=== PATIENT | female | born 1950 | race Caucasian/White ===

== ENCOUNTER → 2016-11-09 | Emergency (ER) | payer BC, OTHER ==
[~2016-11-09] MED LIST: MECLIZINE HCL 25 MG TABLET (FP) ONE; MECLIZINE HCL 25 MG TABLET (FP) PO ONE
[2016-11-09 11:02] VITALS: BP 165/87; PULSE 68; TEMP 98; BMI 27.3
--- NOTE | 2016-11-09 12:04 | PDOC ---
History of Present Illness - General Chief Complaint: Lightheaded Stated Complaint: LIGHTHEADED, NEAR SYNCOPE Time Seen by Provider: 11/09/16 11:43 - History of Present Illness Initial Comments: 11/09/16 11:45 Ms. Diaz is a 66 year old female with a significant past medical history of vertigo and reported benign pituitary mass who presents to the emergency department with 3 day history of shaking, dizziness, weakness, and headache. She reports that she had some nausea that was relieved by vomiting on Wednesday, and that she has had the weakness and dizziness more or less constantly since. She has a history of headaches for years but presents concerned about the recent weakness. Is currently between neurologists. The patient denies chest pain and shortness of breath. Denies fever, chills, diarrhea and constipation. Denies dysuria, frequency, urgency and hematuria. Allergies: almond oil, apples, avocado, peaches Past surgical history: denies Social history: denies alcohol / tobacco PMD - Dr. Garcia 11/09/16 12:04 Past History - Past Medical History Allergies/Adverse Reactions: Allergies Allergy/AdvReac Type Severity Reaction Status Date / Time almond oil Allergy Verified 11/09/16 11:02 apple Allergy Verified 11/09/16 11:02 avocado Allergy Verified 11/09/16 11:02 peach Allergy Verified 11/09/16 11:02 Home Medications: Ambulatory Orders Meclizine HCl [Antivert -] 25 mg PO TID PRN #30 tablet 12/21/15 Amlodipine Besylate [Norvasc -] 5 mg PO DAILY 11/09/16 Pantoprazole Sodium [Protonix] 40 mg PO DAILY 11/09/16 Anemia: No Asthma: Yes Cancer: No Cardiac Disorders: Yes (palpitations) CVA: No COPD: No CHF: No Dementia: No Diabetes: No GI Disorders: Yes (GASTRITIS, GERD) Disorders: No HTN: No Hypercholesterolemia: No Liver Disease: No Seizures: No Thyroid Disease: No Other medical history: BENIGN BRAIN TUMOR - Surgical History Abdominal Surgery: Yes (tummy tuck) Appendectomy: No Cardiac Surgery: No Cholecystectomy: No Lung Surgery: No Neurologic Surgery: No Orthopedic Surgery: No - Immunization History Immunization Up to Date: Yes - Psycho/Social/Smoking Cessation Hx Anxiety: No Suicidal Ideation: No Smoking History: Never smoked Have you smoked in the past 12 months: No Hx Alcohol Use: No Drug/Substance Use Hx: No Substance Use Type: None Review of Systems - Review of Systems Comments:: 11/09/16 11:45 GENERAL/CONSTITUTIONAL: No fever or chills. No weakness. HEAD, EYES, EARS, NOSE AND THROAT: No change in vision. No ear pain or discharge. No sore throat. CARDIOVASCULAR: No chest pain or shortness of breath RESPIRATORY: No cough, wheezing, or hemoptysis. GASTROINTESTINAL: +Some nausea on wednesday with one episode of vomiting, no diarrhea or constipation. GENITOURINARY: No dysuria, frequency, or change in urination. MUSCULOSKELETAL: No joint or muscle swelling or pain. No neck or back pain. SKIN: No rash NEUROLOGIC: +Endorses Headache, vertigo, and weakness; denies loss of consciousness ENDOCRINE: No increased thirst. No abnormal weight change HEMATOLOGIC/LYMPHATIC: No anemia, easy bleeding, or history of blood clots. ALLERGIC/IMMUNOLOGIC: No hives or skin allergy. 11/09/16 12:07 11/09/16 13:39 *Physical Exam - Vital Signs Last Vital Signs Temp Pulse Resp BP Pulse Ox 98.0 F 68 18 165/87 97 11/09/16 10:58 11/09/16 10:58 11/09/16 10:58 11/09/16 10:58 11/09/16 10:58 11/09/16 12:29 - Physical Exam Comments: 11/09/16 11:46 GENERAL: Awake, alert, and fully oriented, in no acute distress HEAD: No signs of trauma, normocephalic, atraumatic EYES: PERRLA, EOMI, sclera anicteric, conjunctiva clear ENT: Auricles normal inspection, hearing grossly normal, nares patent, oropharynx clear without exudates. Moist mucosa NECK: Normal ROM, supple, no lymphadenopathy, JVD, or masses LUNGS: No distress, speaks full sentences, clear to auscultation bilaterally HEART: Regular rate and rhythm, normal S1 and S2, no murmurs, rubs or gallops, peripheral pulses normal and equal bilaterally. ABDOMEN: Soft, nontender, normoactive bowel sounds. No guarding, no rebound. No masses EXTREMITIES: Normal inspection, Normal range of motion, no edema. No clubbing or cyanosis. NEUROLOGICAL: +Nystagmus noted on exam; Cranial nerves II through XII grossly intact. Normal speech, normal gait, no focal sensorimotor deficits SKIN: Warm, Dry, normal turgor, no rashes or lesions noted. 11/09/16 12:08 11/09/16 12:29 11/09/16 13:40 11/09/16 16:00 ED Treatment Course - LABORATORY CBC & Chemistry Diagram: 11/09/16 13:36 11/09/16 13:36 Medical Decision Making - Medical Decision Making 11/09/16 13:41 Patient presents with 4 day history of generalized weakness with nausea. History of vertigo, has not taken her medication recently. Exam positive for eye nystagmus. No focal deficits noted. Suspect vertigo exacerbation, took basic labs for CBC/BMP/UTI to r/o other causative factors. UTI, labs all normal. Diagnosing cause as vertigo. Will refer to neurologist and discharge. 11/09/16 15:37 11/09/16 16:00 *DC/Admit/Observation/Transfer Diagnosis at time of Disposition: Vertigo - Discharge Dispostion Disposition: HOME - Referrals Referrals: Weston Lopez MD [Staff Physician] - - Patient Instructions Printed Discharge Instructions: Vertigo Additional Instructions: Please take home meclizine as proscribed. If problems finding medications on returning home please call and we will write prescription for you. Follow-up with neurologist this week. - Post Discharge Activity Work/School Note: Back to Work - Attestations Physician Attestion: 11/09/16 13:45 I, Dr. Patel Sheridan, attest that this document has been prepared under my direction and personally reviewed by me in its entirety. I further attest, that it accurately reflects all work, treatment, procedures and medical decision -making performed by me.
[2016-11-09 13:36] LABS: URINE APPEARANCE CLEAR; URINE BILIRUBIN NEGATIVE (NEGATIVE); URINE BLOOD NEGATIVE (NEGATIVE); URINE COLOR COLORLESS; URINE GLUCOSE (UA) NEGATIVE (NEGATIVE); URINE KETONE NEGATIVE (NEGATIVE); URINE LEUK ESTERASE NEGATIVE (NEGATIVE); URINE NITRITE NEGATIVE (NEGATIVE); URINE PROTEIN NEGATIVE (NEGATIVE); URINE UROBILINOGEN NEGATIVE mg/dL (0.2-1.0)
[2016-11-09 13:53] LABS: BASOPHIL 0.5 % (0-2.0); EOSINOPHIL 2.2 % (0-4.5); MCH 29.7 pg (25.7-33.7); MCHC 33.5 g/dl (32.0-36.0); MEAN CELL VOLUME 88.8 fl (80-96); MEAN PLT VOLUME 8.1 fl (7.5-11.1); NEUTROPHILS 69.5 % (42.8-82.8); PLATELET COUNT 248 K/MM3 (134-434); RDW 13.3 % (11.6-15.6); WHITE BLOOD COUNT 8.2 K/mm3 (4.0-10.0)
[2016-11-09 14:17] LABS: ANION GAP 6 (8-16); CALCIUM 9.6 mg/dL (8.5-10.1); CO2 30 mmol/L (21-32); CREATININE 0.6 mg/dL (0.55-1.02); GLUCOSE,RANDOM 82 mg/dL (74-106)
[2016-11-09 14:20] LABS: TROPONIN I < 0.02 ng/ml (0.00-0.05)
--- NOTE | 2016-11-09 14:20 | PDOC ---
Attending Attestation - Resident Resident Name: Patel Sheridan - ED Attending Attestation I have performed the following: I have examined & evaluated the patient, The case was reviewed & discussed with the resident, I agree w/resident's findings & plan, Exceptions are as noted - HPI HPI: 11/09/16 14:19 Agree with the resident's HPI as documented in the electronic medical record. - Physicial Exam PE: 11/09/16 14:19 Agree with the resident's physical examination as documented in the electronic medical record. - Medical Decision Making 11/09/16 14:19 66-year-old female with history of pituitary adenoma and chronic headaches presents the emergency Department with complaints of vertiginous symptoms over the past 3 days; she did not take her meclizine. Differential diagnosis includes but is not limited to: Vertigo, dehydration, electrolyte abnormality, atypical presentation of ACS, toxic/metabolic derangement. Plan: 1. Labs 2. EKG 3. Meclizine 4. Observe and reevaluate
--- NOTE | 2016-11-09 16:58 | EKG ---
Test Reason : Blood Pressure : / mmHG Vent. Rate : 055 BPM Atrial Rate : 055 BPM P-R Int : 132 ms QRS Dur : 088 ms QT Int : 420 ms P-R-T Axes : 057 028 010 degrees QTc Int : 401 ms SINUS BRADYCARDIA CANNOT RULE OUT ANTERIOR INFARCT , AGE UNDETERMINED ABNORMAL ECG WHEN COMPARED WITH ECG OF 19-DEC-2015 10:01, NO SIGNIFICANT CHANGE WAS FOUND Confirmed by DANA CESPEDES MD ([id number]) on 11/09/2016 4:57:32 PM Referred By: Confirmed By:DANA CESPEDES MD
== END | disposition home or self-care (01) ==
LOC: JER 10:55
DX: R42 Dizziness and giddiness (principal)
CPT/HCPCS: 36415; 80048; 81003; 82550; 84484; 85025; 93005; 93010; 99283-25

== ENCOUNTER 2017-03-29 10:53 | Emergency (ER) | payer BC, OTHER ==
[2017-03-29 11:21] VITALS: TEMP 98; BMI 27.3
--- NOTE | 2017-03-29 11:26 | PDOC ---
History of Present Illness <Darnell Edmondson - Last Filed: 03/29/17 15:05> - General History Source: Patient Exam Limitations: No Limitations - History of Present Illness Initial Comments: 03/29/17 12:02 The patient is a 66 year old female, with a significant past medical history of a brain tumor(Pituitary gland macroadenoma), chronic headaches, and gastritis, who presents to the emergency department with dizziness, headache, and nausea since earlier today. The patient reports while at work she began to feel dizzy( as if the room were spinning), and had to grab onto the eller because she thought she was going to pass out. Patient reports the school nurse monitored her blood pressure, and told her it was elevated and recommended ED evaluation. She reports associated headache, nausea, chills, and chest pressure, but denies any LOC, head trauma, changes in vision, or vomiting. Patient reports similar episodes in the past, for which she has followed up with a Neurologist for, Dr. Stahl, who ordered multiple MRIs. Patient reports she was diagnosed with a pituitary adenoma approximately 1 year ago. Since then she reports multiple episodes of vertigo. She denies any shortness of breath, diaphoresis, or palpitations. She denies any abdominal pain, diarrhea, constipation, or changes in urination patterns. She denies any recent travel or sick contacts. Allergies: NKDA Past Surgical History: Trinh walsh Social History: Non smoker. No ETOH or recreational drug use. PCP: Dr. Garcia Neurologist: Dr. Stahl <Digna Morin - Last Filed: 03/29/17 18:40> - General Chief Complaint: Lightheaded Stated Complaint: LIGHTHEADED Time Seen by Provider: 03/29/17 11:25 Past History - Past Medical History Anemia: No Asthma: Yes Cancer: No Cardiac Disorders: Yes (palpitations) CVA: No COPD: No CHF: No Dementia: No Diabetes: No GI Disorders: Yes (GASTRITIS, GERD) Disorders: No HTN: No Hypercholesterolemia: No Liver Disease: No Seizures: No Thyroid Disease: No - Surgical History Abdominal Surgery: Yes (fanmy jillian) Appendectomy: No Cardiac Surgery: No Cholecystectomy: No Lung Surgery: No Neurologic Surgery: No Orthopedic Surgery: No - Immunization History Immunization Up to Date: Yes - Suicide/Smoking/Psychosocial Hx Smoking History: Never smoked Have you smoked in the past 12 months: No Hx Alcohol Use: No Drug/Substance Use Hx: No Substance Use Type: None <Darnell Edmondson - Last Filed: 03/29/17 15:05> <Digna Morin - Last Filed: 03/29/17 18:40> - Past Medical History Allergies/Adverse Reactions: Allergies Allergy/AdvReac Type Severity Reaction Status Date / Time almond oil Allergy Verified 03/29/17 11:18 apple Allergy Verified 03/29/17 11:18 avocado Allergy Verified 03/29/17 11:18 peach Allergy Verified 03/29/17 11:18 Home Medications: Ambulatory Orders Amlodipine Besylate [Norvasc -] 5 mg PO DAILY 11/09/16 Meclizine HCl [Antivert -] 25 mg PO TID PRN #30 tablet 11/09/16 Meclizine HCl [Antivert -] 25 mg PO TID #21 tablet 03/29/17 Review of Systems - Review of Systems Able to Perform ROS?: Yes Comments:: 03/29/17 12:02 GENERAL/CONSTITUTIONAL: Yes chills, weakness. No fever. HEAD, EYES, EARS, NOSE AND THROAT: No change in vision. No ear pain or discharge. No sore throat. CARDIOVASCULAR: Yes chest pressure. No shortness of breath. RESPIRATORY: No cough, wheezing, or hemoptysis. GASTROINTESTINAL: Yes nausea. No vomiting, diarrhea or constipation. GENITOURINARY: No dysuria, frequency, or change in urination. MUSCULOSKELETAL: No joint or muscle swelling or pain. No neck or back pain. SKIN: No rash NEUROLOGIC: Yes headache, vertigo, lightheadedness. No loss of consciousness, or change in strength/sensation. ENDOCRINE: No increased thirst. No abnormal weight change. HEMATOLOGIC/LYMPHATIC: No anemia, easy bleeding, or history of blood clots. ALLERGIC/IMMUNOLOGIC: No hives or skin allergy. <Digna Morin - Last Filed: 03/29/17 18:40> *Physical Exam - Vital Signs Last Vital Signs Temp Pulse Resp BP Pulse Ox 98 F 63 19 162/75 97 03/29/17 11:19 03/29/17 11:19 03/29/17 11:19 03/29/17 11:19 03/29/17 11:19 <Darnell Edmondson - Last Filed: 03/29/17 15:05> - Vital Signs Last Vital Signs Temp Pulse Resp BP Pulse Ox 98 F 63 19 162/75 97 03/29/17 11:19 03/29/17 11:19 03/29/17 11:19 03/29/17 11:19 03/29/17 11:19 - Physical Exam Comments: 03/29/17 12:02 GENERAL: Awake, alert, and fully oriented, in no acute distress HEAD: No signs of trauma EYES: PERRLA, EOMI, sclera anicteric, conjunctiva clear ENT: Auricles normal inspection, hearing grossly normal, nares patent, oropharynx clear without exudates. Moist mucosa NECK: Normal ROM, supple, no lymphadenopathy, JVD, or masses LUNGS: Breath sounds equal, clear to auscultation bilaterally. No wheezes, and no crackles HEART: Regular rate and rhythm, normal S1 and S2, no murmurs, rubs or gallops ABDOMEN: Soft, nontender, normoactive bowel sounds. No guarding, no rebound. No masses EXTREMITIES: Normal range of motion, no edema. No clubbing or cyanosis. No cords, erythema, or tenderness NEUROLOGICAL: Cranial nerves II through XII grossly intact. Normal speech SKIN: Warm, Dry, normal turgor, no rashes or lesions noted. <Digna Morin - Last Filed: 03/29/17 18:40> Heart Score/ECG Review - ECG Intrepretation Comment:: 03/29/17 18:40 Vent Rate:55 bpm IMPRESSION: Sinus bradycardia. <Digna Morin - Last Filed: 03/29/17 18:40> ED Treatment Course - LABORATORY CBC & Chemistry Diagram: 03/29/17 12:20 03/29/17 12:20 <Darnell Edmondson - Last Filed: 03/29/17 15:05> - LABORATORY CBC & Chemistry Diagram: 03/29/17 12:20 03/29/17 12:20 - RADIOLOGY Radiograph Interpretation: 03/29/17 13:21 EXAM: CXR INTERPRETED BY: Dr. Tesfaye REVIEWED BY: Dr. Edmondson IMPRESSION: No definite interval change is seen in comparison to a prior radiographic study of 12/19/2015. <Digna Morin - Last Filed: 03/29/17 18:40> *DC/Admit/Observation/Transfer - Discharge Dispostion Admit: No - Attestations Physician Attestion: 03/29/17 11:25 I, Dr. Darnell Edmondson, attest that this document has been prepared under my direction and personally reviewed by me in its entirety. I further attest, that it accurately reflects all work, treatment, procedures and medical decision -making performed by me. <Darnell Edmondson - Last Filed: 03/29/17 15:05> - Attestations Scribe Attestion: 03/29/17 12:03 Documentation prepared by Digna Morin, acting as medical field representative for Darnell Edmondson DO. <Digna Morin - Last Filed: 03/29/17 18:40> Diagnosis at time of Disposition: Vertigo, Pituitary macroadenoma - Discharge Dispostion Disposition: HOME Condition at time of disposition: Improved - Prescriptions Prescriptions: Meclizine HCl [Antivert -] 25 mg PO TID #21 tablet - Referrals Referrals: Laina Sanders MD [Primary Care Provider] - - Patient Instructions Printed Discharge Instructions: DI for Vertigo Additional Instructions: Mrs Diaz - Don't drive while taking the meclazine. Follow up with your regular doctors including Dr. Stahl (Neurology). Return to us if any problems or symptoms get worse. Best- Dr. Darnell Edmondson - Post Discharge Activity Forms/Work/School Notes: Back to Work
[2017-03-29] MEDS ORDERED: SODIUM CHLORIDE 1,000 ML IV STA (12:01)
[2017-03-29] MEDS ORDERED: MECLIZINE HCL 25 MG TABLET (FP) PO ONE (12:12)
[2017-03-29] MEDS ORDERED: MECLIZINE HCL 25 MG TABLET (FP) ONE (12:26)
[2017-03-29 12:31] LABS: BASOPHIL 0.4 % (0-2.0); MCH 29.7 pg (25.7-33.7); MCHC 33.2 g/dl (32.0-36.0); MEAN CELL VOLUME 89.5 fl (80-96); NEUTROPHILS 72.5 % (42.8-82.8); PLATELET COUNT 263 K/MM3 (134-434); RDW 12.7 % (11.6-15.6); WHITE BLOOD COUNT 8.7 K/mm3 (4.0-10.0)
[2017-03-29 12:56] LABS: ALBUMIN 3.7 g/dl (3.4-5.0); ANION GAP 4 (8-16); BILIRUBIN,TOTAL 0.3 mg/dL (0.2-1.0); CALCIUM 9.1 mg/dL (8.5-10.1); CO2 30 mmol/L (21-32); CREATININE 0.8 mg/dL (0.55-1.02); GLUCOSE,RANDOM 97 mg/dL (74-106); SGOT/AST 14 U/L (15-37); SGPT/ALT 24 U/L (12-78); TOT PROT 7.7 g/dl (6.4-8.2)
[2017-03-29 13:00] LABS: ALK PHOS 85 U/L (45-117); CPK 77 IU/L (26-192); TROPONIN I < 0.02 ng/ml (0.00-0.05)
[2017-03-29 13:08] LABS: INR 1.05 (0.82-1.09); PROTHROMBIN TIME (PATIENT) 11.9 SEC (9.98-11.88)
--- NOTE | 2017-03-29 13:15 | EKG ---
Test Reason : Blood Pressure : / mmHG Vent. Rate : 055 BPM Atrial Rate : 055 BPM P-R Int : 136 ms QRS Dur : 086 ms QT Int : 396 ms P-R-T Axes : 049 031 019 degrees QTc Int : 378 ms SINUS BRADYCARDIA OTHERWISE NORMAL ECG WHEN COMPARED WITH ECG OF 09-NOV-2016 13:26, NO SIGNIFICANT CHANGE WAS FOUND Confirmed by DANA CESPEDES MD ([id number]) on 03/29/2017 1:15:30 PM Referred By: Confirmed By:DANA CESPEDES MD
[2017-03-29 15:12] VITALS: BP 140/80; PULSE 88
== END 2017-03-29 15:12 | disposition home or self-care (01) ==
LOC: JER 10:53
PROC: 3E0337Z Introduction of Electrolytic and Water Balance Substance into Peripheral Vein, Percutaneous Approach (ICD-10-PCS; principal; 2017-03-29)
DX: R42 Dizziness and giddiness (principal); D35.2 Benign neoplasm of pituitary gland
CPT/HCPCS: 36415; 71010-TC; 80053; 82550; 83880; 84484; 85025; 85610; 93005; 93010; 99283-25

== ENCOUNTER 2018-08-24 08:02 | Emergency (ER) | payer OTHER, BC ==
[2018-08-24 08:34] VITALS: BP 133/58; PULSE 74; TEMP 98.6; BMI 60.1
[2018-08-24] MEDS ORDERED: ONDANSETRON 4 MG/2 ML VIAL IVPUSH ONE (09:01)
[2018-08-24] MEDS ORDERED: ACETAMINOPHEN 1000 MG/100 ML VIAL (NON FORMULARY) IVPB ONE (09:01)
[2018-08-24] MEDS ORDERED: MECLIZINE HCL 25 MG TABLET (FP) PO ONE (09:02)
[2018-08-24] MEDS ORDERED: SODIUM CHLORIDE 1,000 ML IV STA (09:02)
[2018-08-24] MEDS ORDERED: ONDANSETRON 4 MG/2 ML VIAL ONE (09:26)
[2018-08-24] MEDS ORDERED: ACETAMINOPHEN INJECTION 100 ML IVPB ONE (09:26)
[2018-08-24] MEDS ORDERED: MECLIZINE HCL 25 MG TABLET (FP) ONE (09:26)
[2018-08-24 09:57] LABS: BASO % 0.7 % (0-2.0); EOS % 4.3 % (0-4.5); HEMOGLOBIN 14.1 GM/dL (10.7-15.3); LYMPH % 24.1 % (8-40); MCH 29.9 pg (25.7-33.7); MCHC 33.5 g/dl (32.0-36.0); MEAN CELL VOLUME 89.4 fl (80-96); MEAN PLT VOLUME 8.9 fl (7.5-11.1); MONO % 13.4 % (3.8-10.2); NEUT % 57.5 % (42.8-82.8); PLATELET COUNT 266 K/MM3 (134-434); RBC 4.69 M/mm3 (3.60-5.2); RDW 13.5 % (11.6-15.6); WHITE BLOOD COUNT 4.8 K/mm3 (4.0-10.0)
--- NOTE | 2018-08-24 10:01 | PDOC ---
History of Present Illness - General History Source: Patient Exam Limitations: No Limitations - History of Present Illness Initial Comments: 08/24/18 08:58 68-year-old female with history of vertigo along with a stable pituitary tumor presents to ED with complaints of parietal and temporal throbbing pressure radiating to her bilateral ears along with dizziness since yesterday. Patient states took meclizine last night with no improvement and took Motrin for the headache with no improvement. Patient denies fever, chills, visual changes, neck pain, chest pain, shortness of breath, abdominal pain or urinary complaints. Patient states history of headaches which is similar to presentation but now complaining of nausea which she states is infrequent Timing/Duration: reports: increasing Severity: Yes: moderate Associated Symptoms: reports: nausea/vomiting, other <Renu Almodovar - Last Filed: 08/24/18 11:26> <Soraya Gramajo - Last Filed: 08/24/18 11:31> - General Chief Complaint: Headache Stated Complaint: PAIN Time Seen by Provider: 08/24/18 08:35 Past History - Travel Traveled outside of the country in the last 30 days: No Close contact w/someone who was outside of country & ill: No - Past Medical History Anemia: No Asthma: Yes Cancer: No Cardiac Disorders: Yes (palpitations) CVA: No COPD: No CHF: No Dementia: No Diabetes: No GI Disorders: Yes (GASTRITIS, GERD) Disorders: No HTN: No Hypercholesterolemia: No Liver Disease: No Seizures: No Thyroid Disease: No Other medical history: BRAIN TUMOR- NO INTERVENTIONS - Surgical History Abdominal Surgery: Yes (tummy tuck) Appendectomy: No Cardiac Surgery: No Cholecystectomy: No Lung Surgery: No Neurologic Surgery: No Orthopedic Surgery: No - Immunization History Immunization Up to Date: Yes - Suicide/Smoking/Psychosocial Hx Smoking History: Never smoked Have you smoked in the past 12 months: No Hx Alcohol Use: No Drug/Substance Use Hx: No Substance Use Type: None Patient Lives Alone: No Lives with/in: spouse/SO <Renu Almodovar - Last Filed: 08/24/18 11:26> <Soraya Gramajo - Last Filed: 08/24/18 11:31> - Past Medical History Allergies/Adverse Reactions: Allergies Allergy/AdvReac Type Severity Reaction Status Date / Time almond oil Allergy Verified 08/24/18 08:14 apple Allergy Verified 08/24/18 08:14 avocado Allergy Verified 08/24/18 08:14 peach Allergy Verified 08/24/18 08:14 Home Medications: Ambulatory Orders Amlodipine Besylate [Norvasc -] 5 mg PO DAILY 11/09/16 Meclizine HCl [Antivert -] 25 mg PO TID PRN #30 tablet 11/09/16 Ibuprofen [Motrin -] 600 mg PO TID PRN #21 tablet 08/24/18 Review of Systems - Review of Systems Able to Perform ROS?: Yes Constitutional: No: Symptoms Reported HEENTM: Yes: Symptoms Reported, Ear Pain Respiratory: No: Symptoms reported Cardiac (ROS): Yes: Lightheadedness ABD/GI: Yes: Nausea : No: Symptoms Reported Musculoskeletal: No: Symptoms Reported Integumentary: No: Symptoms Reported Neurological: Yes: Headache Endocrine: No: Symptoms Reported Hematologic/Lymphatic: No: Symptoms Reported <Renu Almodovar - Last Filed: 08/24/18 11:26> *Physical Exam - Vital Signs Last Vital Signs Temp Pulse Resp BP Pulse Ox 98.6 F 74 18 133/58 L 100 08/24/18 08:14 08/24/18 08:14 08/24/18 08:14 08/24/18 08:14 08/24/18 08:14 - Physical Exam General Appearance: Yes: Nourished, Appropriately Dressed. No: Apparent Distress HEENT: positive: EOMI, SHREYAS, TMs Normal, Pharynx Normal. negative: Pale Conjunctivae Neck: positive: Supple. negative: Decreased range of motion, Tender lateral, Tender midline Respiratory/Chest: positive: Lungs Clear, Normal Breath Sounds. negative: Respiratory Distress, Accessory Muscle Use Cardiovascular: positive: Regular Rhythm, Regular Rate. negative: Murmur Gastrointestinal/Abdominal: positive: Soft. negative: Tenderness Extremity: positive: Normal Capillary Refill Integumentary: positive: Normal Color, Warm, Moist Neurologic: positive: Motor Strength 5/5 (ambulatory) <Renu Almodovar - Last Filed: 08/24/18 11:26> - Vital Signs Last Vital Signs Temp Pulse Resp BP Pulse Ox 98.6 F 74 18 133/58 L 100 08/24/18 08:14 08/24/18 08:14 08/24/18 08:14 08/24/18 08:14 08/24/18 08:14 <GramajoSoraya Anisa - Last Filed: 08/24/18 11:31> ED Treatment Course - LABORATORY CBC & Chemistry Diagram: 08/24/18 09:30 08/24/18 09:30 - Medications Given in the ED: ED Medications Discontinued Medications Generic Name Dose Route Start Last Admin Trade Name Rolando PRN Reason Stop Dose Admin Acetaminophen 1,000 mg 08/24/18 09:01 08/24/18 09:40 Ofirmev Injection - IVPB 08/24/18 09:02 1,000 mg ONCE ONE Administration Meclizine HCl 25 mg 08/24/18 09:02 08/24/18 09:40 Antivert - PO 08/24/18 09:03 25 mg ONCE ONE Administration Ondansetron HCl 4 mg 08/24/18 09:01 08/24/18 09:40 Zofran Injection IVPUSH 08/24/18 09:02 4 mg ONCE ONE Administration <Renu Almodovar - Last Filed: 08/24/18 11:26> - LABORATORY CBC & Chemistry Diagram: 08/24/18 09:30 08/24/18 09:30 - ADDITIONAL ORDERS Additional order review: Laboratory Results 08/24/18 08/24/18 10:16 09:30 Sodium 139 Potassium 4.5 Chloride 105 Carbon Dioxide 30 Anion Gap 5 L BUN 15 Creatinine 0.7 Creat Clearance w eGFR 83.47 Random Glucose 92 Calcium 8.9 Total Bilirubin 0.3 AST 28 ALT 24 Alkaline Phosphatase 80 Total Protein 7.2 Albumin 3.4 Urine Color Yellow Urine Appearance Clear Urine pH 6.0 Ur Specific [place] 1.007 L Urine Protein Negative Urine Glucose (UA) Negative Urine Ketones Negative Urine Blood Negative Urine Nitrite Negative Urine Bilirubin Negative Urine Urobilinogen 0.2 Ur Leukocyte Esterase Trace Urine WBC (Auto) 1 Urine RBC (Auto) 0 Urine Casts (Auto) 0 U Epithel Cells (Auto) 0.6 Urine Bacteria (Auto) 8.1 08/24/18 09:30 RBC 4.69 MCV 89.4 MCHC 33.5 RDW 13.5 MPV 8.9 D Neutrophils % 57.5 D Lymphocytes % 24.1 D Monocytes % 13.4 H D Eosinophils % 4.3 Basophils % 0.7 - Medications Given in the ED: ED Medications Discontinued Medications Generic Name Dose Route Start Last Admin Trade Name Rolando PRN Reason Stop Dose Admin Acetaminophen 1,000 mg 08/24/18 09:01 08/24/18 09:40 Ofirmev Injection - IVPB 08/24/18 09:02 1,000 mg ONCE ONE Administration Sodium Chloride 1,000 mls @ 1,000 mls/hr 08/24/18 09:02 08/24/18 09:40 Normal Saline - IV 08/24/18 10:01 1,000 mls/hr ASDIR STA Administration Meclizine HCl 25 mg 08/24/18 09:02 08/24/18 09:40 Antivert - PO 08/24/18 09:03 25 mg ONCE ONE Administration Ondansetron HCl 4 mg 08/24/18 09:01 08/24/18 09:40 Zofran Injection IVPUSH 08/24/18 09:02 4 mg ONCE ONE Administration <Soraya Gramajo - Last Filed: 08/24/18 11:31> Medical Decision Making - Medical Decision Making 08/24/18 09:00 Chief complaint, headache along with nausea. Pain since yesterday. Patient with history of pituitary tumor unchanged from previous MRI noted March 2018 Meclizine and Motrin with no improvement Exam: Vital signs stable no neuro focal deficits/findings Plan: Labs, fluids, Zofran, Toradol along with urine collection 08/24/18 10:58 Laboratory Tests 08/24/18 08/24/18 08/24/18 09:30 09:30 10:16 WBC 4.8 Hgb 14.1 Hct 42.0 Neutrophils % 57.5 D Sodium 139 Potassium 4.5 Chloride 105 Carbon Dioxide 30 Anion Gap 5 L BUN 15 Creatinine 0.7 AST 28 ALT 24 Albumin 3.4 Ur Specific [place] 1.007 L Urine Nitrite Negative Urine Bilirubin Negative Urine Urobilinogen 0.2 Ur Leukocyte Esterase Trace Urine WBC (Auto) 1 Urine RBC (Auto) 0 Patient states feeling much better. 08/24/18 11:26 Patient requesting to eat and to be discharged. Patient will be sent home with Motrin 600 mg and states has enough meclizine at home. <Renu Almodovar - Last Filed: 08/24/18 11:26> - Medical Decision Making The patient was seen and evaluated in conjunction with midlevel provider under my direct supervision, ancillary studies were reviewed. I agree with the plan as outlined [employer] Sco[employer]. HPI, workup/dispo as outlined. VS reviewed, wnl. labs unremarkable, given supportive care/analgesia, reassessment, anticipate discharge 08/24/18 11:31 <Soraya Gramajo - Last Filed: 08/24/18 11:31> *DC/Admit/Observation/Transfer <Renu Almodovar - Last Filed: 08/24/18 11:26> <Soraya Gramajo - Last Filed: 08/24/18 11:31> Diagnosis at time of Disposition: Vertigo, Headache - Discharge Dispostion Disposition: HOME Condition at time of disposition: Improved - Prescriptions Prescriptions: Ibuprofen [Motrin -] 600 mg PO TID PRN #21 tablet PRN Reason: Pain - Referrals Referrals: Laina Sanders MD [Primary Care Provider] - - Patient Instructions Printed Discharge Instructions: DI for Vertigo, DI for Headache Additional Instructions: Take motrin as needed for headache that please use your meclizine as needed for vertigo. If your symptoms worsen or return please follow-up with your neurologist or return to the ER. - Post Discharge Activity
[2018-08-24 10:30] LABS: EPI CELLS 0.6 /HPF (0-5/HPF); URINE APPEARANCE CLEAR; URINE BACTERIA 8.1 /hpf (NEGATIVE); URINE BILIRUBIN NEGATIVE (NEGATIVE); URINE CASTS 0 /lpf (0-8); URINE COLOR YELLOW; URINE GLUCOSE (UA) NEGATIVE (NEGATIVE); URINE KETONE NEGATIVE (NEGATIVE); URINE LEUK ESTERASE TRACE (NEGATIVE); URINE NITRITE NEGATIVE (NEGATIVE); URINE PROTEIN NEGATIVE (NEGATIVE); URINE RBC 0 /hpf (0-4); URINE UROBILINOGEN 0.2 mg/dL (0.2-1.0); URINE WBC 1 /hpf (0-5)
[2018-08-24 10:31] LABS: ALBUMIN 3.4 g/dl (3.4-5.0); ALK PHOS 80 U/L (45-117); ANION GAP 5 MMOL/L (8-16); BILIRUBIN,TOTAL 0.3 mg/dL (0.2-1); BLOOD UREA NITROGEN 15 mg/dL (7-18); CALCIUM 8.9 mg/dL (8.5-10.1); CHLORIDE 105 mmol/L (98-107); CO2 30 mmol/L (21-32); CREATININE 0.7 mg/dL (0.55-1.3); GLUCOSE,RANDOM 92 mg/dL (74-106); POTASSIUM 4.5 mmol/L (3.5-5.1); SGOT/AST 28 U/L (15-37); SGPT/ALT 24 U/L (13-61); SODIUM 139 mmol/L (136-145); TOT PROT 7.2 g/dl (6.4-8.2)
--- NOTE | 2018-08-24 15:37 | EKG ---
Test Reason : Blood Pressure : / mmHG Vent. Rate : 061 BPM Atrial Rate : 061 BPM P-R Int : 136 ms QRS Dur : 086 ms QT Int : 396 ms P-R-T Axes : 057 034 015 degrees QTc Int : 398 ms NORMAL SINUS RHYTHM CANNOT RULE OUT ANTERIOR INFARCT , AGE UNDETERMINED ABNORMAL ECG WHEN COMPARED WITH ECG OF 29-MAR-2017 11:58, NO SIGNIFICANT CHANGE WAS FOUND Confirmed by MATEO ROA, HEATHER ([id number]) on 08/24/2018 3:37:29 PM Referred By: Confirmed By:HEATHER GALINDO MD
== END 2018-08-24 11:53 | disposition home or self-care (01) ==
LOC: JER 08:02
DX: R51 Headache (principal); R42 Dizziness and giddiness
CPT/HCPCS: 36415; 80053; 81003; 85025; 93005; 93010; 99282-25; J0131; J7030

== ENCOUNTER 2018-09-30 15:15 | Emergency (ER) | payer OTHER, BC ==
[2018-09-30 15:22] VITALS: BP 155/80; PULSE 64; TEMP 97.7; BMI 26.0
[2018-09-30] MEDS ORDERED: KETOROLAC TROMETHAMINE 60 MG/2 ML VIAL IM ONE (15:23)
--- NOTE | 2018-09-30 15:23 | PDOC ---
Rapid Medical Evaluation Chief Complaint: Back Pain Time Seen by Provider: 09/30/18 15:19 Medical Evaluation: Allergies Allergy/AdvReac Type Severity Reaction Status Date / Time almond oil Allergy Verified 09/30/18 15:19 apple Allergy Verified 09/30/18 15:19 avocado Allergy Verified 09/30/18 15:19 peach Allergy Verified 09/30/18 15:19 09/30/18 15:19 I have performed a brief in-person evaluation of this patient. The patient presents with a chief complaint of: left lower back pain since yesterday. Report increased pain when getting up from sitting . Report taking tylenol for pain. Pertinent physical exam findings: moderate TTP to left paravertebral muscle of lumbar spine I have ordered the following: Toradol. The patient will proceed to the ED for further evaluation. Discharge Disposition - Diagnosis Low back pain Qualifiers: Chronicity: acute Back pain laterality: left Sciatica presence: without sciatica Qualified Code(s): M54.5 - Low back pain - Discharge Dispostion Condition at time of disposition: Stable - Referrals - Patient Instructions - Post Discharge Activity
[2018-09-30] MEDS ORDERED: CYCLOBENZAPRINE HCL 10 MG TABLET (FP) PO ONE (16:03)
--- NOTE | 2018-09-30 16:10 | PDOC ---
History of Present Illness - General Chief Complaint: Back Pain Stated Complaint: BACK PAIN Time Seen by Provider: 09/30/18 15:19 History Source: Patient - History of Present Illness Occurred: reports: this morning Pain Location: reports: back Past History - Past Medical History Allergies/Adverse Reactions: Allergies Allergy/AdvReac Type Severity Reaction Status Date / Time almond oil Allergy Verified 09/30/18 15:19 apple Allergy Verified 09/30/18 15:19 avocado Allergy Verified 09/30/18 15:19 peach Allergy Verified 09/30/18 15:19 Home Medications: Ambulatory Orders Amlodipine Besylate [Norvasc -] 5 mg PO DAILY 11/09/16 Cyclobenzaprine HCl [Flexeril -] 10 mg PO TID #9 tablet 09/30/18 Ibuprofen [Motrin -] 800 mg PO Q6H #30 tablet 09/30/18 Anemia: No Asthma: Yes Cancer: No Cardiac Disorders: Yes (palpitations) CVA: No COPD: No CHF: No Dementia: No Diabetes: No GI Disorders: Yes (GASTRITIS, GERD) Disorders: No HTN: No Hypercholesterolemia: No Liver Disease: No Seizures: No Thyroid Disease: No - Surgical History Abdominal Surgery: Yes (tummy tuck) Appendectomy: No Cardiac Surgery: No Cholecystectomy: No Lung Surgery: No Neurologic Surgery: No Orthopedic Surgery: No - Immunization History Immunization Up to Date: Yes - Suicide/Smoking/Psychosocial Hx Smoking History: Never smoked Have you smoked in the past 12 months: No Hx Alcohol Use: No Drug/Substance Use Hx: No Substance Use Type: None Review of Systems - Review of Systems Constitutional: No: Chills, Fever ABD/GI: No: Nausea, Vomiting, Abdominal cramping : No: Burning, Dysuria, Discharge, Flank Pain, Hematuria Musculoskeletal: Yes: Back Pain Neurological: No: Numbness, Tingling, Weakness *Physical Exam - Vital Signs Last Vital Signs Temp Pulse Resp BP Pulse Ox 97.7 F 64 18 155/80 97 09/30/18 15:20 09/30/18 15:20 09/30/18 15:20 09/30/18 15:20 09/30/18 15:20 - Physical Exam General Appearance: Yes: Appropriately Dressed, Mild Distress HEENT: positive: Normal Voice Neck: positive: Supple Respiratory/Chest: negative: Respiratory Distress Gastrointestinal/Abdominal: positive: Flat, Soft. negative: Tender, Pulsatile Mass Musculoskeletal: negative: CVA Tenderness, Vertebral Tenderness Extremity: positive: Normal Inspection Integumentary: positive: Dry, Warm Neurologic: positive: Fully Oriented, Alert, Normal Mood/Affect, Motor Strength 5/5 ED Treatment Course - RADIOLOGY Radiology Studies Ordered: Category Date Time Status SPINE-LUMBAR SACRAL [RAD] Stat Radiology 09/30/18 16:04 Ordered Medical Decision Making - Medical Decision Making 09/30/18 16:05 68-year-old female, history of HTN, gastritis, benign brain tumor, presents with low back pain. Patient states this morning, he developed, non-radiating, sharp, constant lower back pain, worse with movement and ambulation. Has had similar pain in past but not this severe. No lower extremity weakness, saddle anesthesia, bladder or bowel incontinence, dysuria, hematuria, nausea, vomiting , fever or chills. Took Tylenol this a.m. with mild relief. No trauma or other inciting factors. No unexplained weight loss. See exam LBP Recurrent Possibly MSK No trauma No e/o infection No unexplained weight loss No red flags at this time -pain control -XR r/o compression fx 09/30/18 17:21 XR neg for fx. Will dc w/ pain control. PMD f/u as needed *DC/Admit/Observation/Transfer Diagnosis at time of Disposition: Low back pain Qualifiers: Chronicity: acute Back pain laterality: left Sciatica presence: without sciatica Qualified Code(s): M54.5 - Low back pain - Discharge Dispostion Disposition: HOME Condition at time of disposition: Stable - Prescriptions Prescriptions: Cyclobenzaprine HCl [Flexeril -] 10 mg PO TID #9 tablet Ibuprofen [Motrin -] 800 mg PO Q6H #30 tablet - Referrals Referrals: Florin Garcia MD [Primary Care Provider] - - Patient Instructions Printed Discharge Instructions: DI for Low Back Pain Additional Instructions: Your XR showed no fracture Take medications as directed for pain Please follow up with your PMD - Post Discharge Activity
[2018-09-30] MEDS ORDERED: CYCLOBENZAPRINE HCL 10 MG TABLET (FP) ONE (16:18)
[2018-09-30] MEDS ORDERED: KETOROLAC TROMETHAMINE 60 MG/2 ML VIAL ONE (16:18)
== END 2018-09-30 17:33 | disposition home or self-care (01) ==
LOC: JERFT 15:15
PROC: 3E0233Z Introduction of Anti-inflammatory into Muscle, Percutaneous Approach (ICD-10-PCS; principal; 2018-09-30)
DX: M54.5 Low back pain (principal); I10 Essential (primary) hypertension; K21.9 Gastro-esophageal reflux disease without esophagitis
CPT/HCPCS: 72100-TC-FY; 99281-25

== ENCOUNTER 2022-04-23 15:16 | Inpatient (IN) | payer OTHER, BC ==
[2022-04-23] MEDS ORDERED: LACTATED RINGERS SOLUTION 1000 ML INFUS.BAG IV ONE (17:02)
[2022-04-23] MEDS ORDERED: METOCLOPRAMIDE HCL INJECTION 10 MG/2 ML VIAL IVPUSH ONE (17:02)
[2022-04-23] MEDS ORDERED: METOCLOPRAMIDE HCL INJECTION 10 MG/2 ML VIAL ONE (17:36)
[2022-04-23 18:37] LABS: BASO % 0.7 % (0-2.0); EOS % 5.4 % (0-4.5); HEMOGLOBIN 14.2 GM/dL (10.7-15.3); LYMPH % 32.3 % (8-40); MCH 29.4 pg (25.7-33.7); MCHC 32.3 g/dl (32.0-36.0); MEAN CELL VOLUME 91.2 fl (80-96); MEAN PLT VOLUME 9.3 fl (7.5-11.1); MONO % 6.8 % (3.8-10.2); NEUT % 54.8 % (42.8-82.8); PLATELET COUNT 314 10^3/uL (134-434); RBC 4.83 M/mm3 (3.60-5.2); RDW 13.6 % (11.6-15.6); WHITE BLOOD COUNT 7.4 K/mm3 (4.0-10.0)
[2022-04-23 18:42] LABS: INR 1.04 (0.83-1.09)
[2022-04-23 18:45] LABS: ACTIVATED PTT 34.2 SECONDS (25.2-36.5)
[2022-04-23 18:58] LABS: ALBUMIN 3.6 g/dl (3.4-5.0); CALCIUM 9.6 mg/dL (8.5-10.1)
[2022-04-23 18:59] LABS: BLOOD UREA NITROGEN 18.5 mg/dL (7-18); MAGNESIUM 2.3 mg/dL (1.8-2.4)
[2022-04-23 19:02] LABS: CREATININE 0.6 mg/dL (0.55-1.3)
[2022-04-23 19:04] LABS: BILIRUBIN,TOTAL 0.4 mg/dL (0.2-1); TOT PROT 7.8 g/dl (6.4-8.2)
[2022-04-24 00:26] VITALS: RESP 18; TEMP 97.8; BMI 27.5
[2022-04-24 07:52] LABS: URINE APPEARANCE CLEAR; URINE BILIRUBIN NEGATIVE (NEGATIVE); URINE COLOR YELLOW; URINE GLUCOSE (UA) NEGATIVE (NEGATIVE); URINE KETONE NEGATIVE (NEGATIVE); URINE LEUK ESTERASE NEGATIVE (NEGATIVE); URINE NITRITE NEGATIVE (NEGATIVE); URINE PROTEIN NEGATIVE (NEGATIVE); URINE UROBILINOGEN 0.2 mg/dL (0.2-1.0)
[2022-04-24 08:12] VITALS: BP 131/73; PULSE 62
[2022-04-24] MEDS ORDERED: ENOXAPARIN NA (PORCINE) 40 MG/0.4 ML DISP.SYRIN SQ SCH (10:00)
[2022-04-24] MEDS ORDERED: amLODIPine BESYLATE 5 MG TABLET (FP) PO SCH (10:00)
[2022-04-24 10:08] LABS: EOS % 7.7 % (0-4.5); HEMOGLOBIN 13.4 GM/dL (10.7-15.3); MCH 29.8 pg (25.7-33.7); MCHC 32.7 g/dl (32.0-36.0); MEAN CELL VOLUME 91.2 fl (80-96); MEAN PLT VOLUME 8.8 fl (7.5-11.1); MONO % 7.5 % (3.8-10.2); NEUT % 41.8 % (42.8-82.8); PLATELET COUNT 280 10^3/uL (134-434); RDW 13.4 % (11.6-15.6); WHITE BLOOD COUNT 6.1 K/mm3 (4.0-10.0)
[2022-04-24 10:34] LABS: BLOOD UREA NITROGEN 20.7 mg/dL (7-18); CALCIUM 8.9 mg/dL (8.5-10.1); MAGNESIUM 2.2 mg/dL (1.8-2.4)
[2022-04-24 10:36] LABS: CHOLESTEROL 186 mg/dL (50-200); CREATININE 0.7 mg/dL (0.55-1.3); LDL CHOLESTEROL (ONLY SJRH) 79 mg/dL (5-100); PHOSPHOROUS 3.2 mg/dL (2.5-4.9); TRIGLYCERIDES 62 mg/dL (0-150)
[2022-04-24 10:38] LABS: BILIRUBIN,TOTAL 0.5 mg/dL (0.2-1); HDL CHOLESTEROL 94 mg/dL (40-60); TOT PROT 6.4 g/dl (6.4-8.2)
== END 2022-04-24 14:04 | disposition home or self-care (01) | DRG 644 ==
LOC: JER 15:16 → JERBED 21:13 → OBSVTOIN 23:48 → J8W 23:48
PROVIDERS: ADMIT Internal Medicine; ATTEND Internal Medicine
DX: D35.2 Benign neoplasm of pituitary gland (principal); I67.4 Hypertensive encephalopathy; I10 Essential (primary) hypertension; J45.909 Unspecified asthma, uncomplicated; K21.9 Gastro-esophageal reflux disease without esophagitis; H53.8 Other visual disturbances; R42 Dizziness and giddiness
CPT/HCPCS: 0241U-QW; 36415; 70450-TC; 71045-TC-FY; 80053; 80061; 81003; 83735; 84100; 84443; 84484; 85025; 85610; 85730; 93005; 93010; 93306-TC; 93880-TC; 99285-25; G0378

== ENCOUNTER 2023-06-29 12:01 | Observation (INO) | payer OTHER, BC ==
[2023-06-29 12:30] VITALS: BMI 26.2
[2023-06-29] MEDS ORDERED: ACETAMINOPHEN INJECTION 100 ML IVPB ONE (14:26)
[2023-06-29] MEDS ORDERED: FAMOTIDINE 20 MG/50 ML IVPB 20 MG/50 ML MG IVPB ONE (14:26)
[2023-06-29] MEDS: FAMOTIDINE 20 MG/50 ML IVPB 20 MG/50 ML MG IVPB ONE (14:31)
[2023-06-29] MEDS: ACETAMINOPHEN 1000 MG/100 ML BAG IVPB ONE (14:31)
[2023-06-29 14:36] LABS: BASO % 0.5 % (0-2.0); EOS % 2.7 % (0-4.5); HEMATOCRIT 44.7 % (32.4-45.2); HEMOGLOBIN 15.1 GM/dL (10.7-15.3); LYMPH % 26.5 % (8-40); MCH 29.9 pg (25.7-33.7); MCHC 33.7 g/dl (32.0-36.0); MEAN CELL VOLUME 88.6 fl (80-96); MEAN PLT VOLUME 9.2 fl (7.5-11.1); MONO % 6.6 % (3.8-10.2); NEUT % 63.7 % (42.8-82.8); PLATELET COUNT 313 10^3/uL (134-434); RBC 5.05 M/mm3 (3.60-5.2); RDW 13.8 % (11.6-15.6); WHITE BLOOD COUNT 7.8 K/mm3 (4.0-10.0)
[2023-06-29 14:52] LABS: ACTIVATED PTT 34.7 SECONDS (25.2-36.5); INR 1.03 (0.83-1.09); PROTHROMBIN TIME (PATIENT) 11.9 SEC (9.7-13.0)
[2023-06-29 14:55] LABS: CHLORIDE 107 mmol/L (98-107); SODIUM 139 mmol/L (136-145)
[2023-06-29 14:57] LABS: CALCIUM 9.6 mg/dL (8.5-10.1)
[2023-06-29 14:58] LABS: ALBUMIN 3.6 g/dl (3.4-5.0); BLOOD UREA NITROGEN 21.7 mg/dL (7-18); CO2 25 mmol/L (21-32); GLUCOSE,RANDOM 84 mg/dL (74-106)
[2023-06-29 15:01] LABS: CREATININE 0.8 mg/dL (0.55-1.3); SGOT/AST 63 U/L (15-37)
[2023-06-29 15:02] LABS: BILIRUBIN,TOTAL 0.4 mg/dL (0.2-1); TOT PROT 8.2 g/dl (6.4-8.2)
[2023-06-29 15:03] LABS: ALK PHOS 91 U/L (45-117); ANION GAP 7 mmol/L (4-13); POTASSIUM 6.8 mmol/L (3.5-5.1); SGPT/ALT 27 U/L (13-61)
[2023-06-29 16:16] LABS: POTASSIUM 4.8 mmol/L (3.5-5.1)
[2023-06-29 16:17] LABS: CALCIUM 9.3 mg/dL (8.5-10.1)
[2023-06-29 16:18] LABS: BLOOD UREA NITROGEN 22.5 mg/dL (7-18)
[2023-06-29 16:21] LABS: CREATININE 0.7 mg/dL (0.55-1.3)
[2023-06-29] MEDS: PANTOPRAZOLE 40 MG TABLET PO SCH (23:45)
[2023-06-30 03:16] VITALS: RESP 18
[2023-06-30] MEDS: ACETAMINOPHEN 325 MG TABLET (FP) PO PRN (03:37)
[2023-06-30 06:43] LABS: HEMATOCRIT 41.5 % (32.4-45.2); HEMOGLOBIN 13.9 GM/dL (10.7-15.3); MCH 29.7 pg (25.7-33.7); MCHC 33.5 g/dl (32.0-36.0); MEAN CELL VOLUME 88.9 fl (80-96); MEAN PLT VOLUME 8.4 fl (7.5-11.1); PLATELET COUNT 263 10^3/uL (134-434); RBC 4.67 M/mm3 (3.60-5.2); RDW 13.4 % (11.6-15.6); WHITE BLOOD COUNT 5.9 K/mm3 (4.0-10.0)
[2023-06-30 07:02] LABS: POTASSIUM 4.2 mmol/L (3.5-5.1)
[2023-06-30 07:08] LABS: ALBUMIN 3.1 g/dl (3.4-5.0); BLOOD UREA NITROGEN 26.6 mg/dL (7-18); MAGNESIUM 2.1 mg/dL (1.8-2.4)
[2023-06-30 07:09] LABS: PHOSPHOROUS 4.4 mg/dL (2.5-4.9)
[2023-06-30 07:11] LABS: BILIRUBIN,TOTAL 0.4 mg/dL (0.2-1); CREATININE 0.8 mg/dL (0.55-1.3); TOT PROT 6.5 g/dl (6.4-8.2)
[2023-06-30 11:12] VITALS: TEMP 98.2
[2023-06-30] MEDS: amLODIPine BESYLATE 5 MG TABLET (FP) PO SCH (11:37)
[2023-06-30] MEDS ORDERED: ASPIRIN 81 MG CHEWABLE TABLETS PO SCH (14:05)
[2023-06-30 14:08] VITALS: BP 122/60; PULSE 60
[2023-07-01] MEDS ORDERED: ASPIRIN 81 MG CHEWABLE TABLETS PO SCH (10:00)
== END 2023-06-30 16:33 | disposition home or self-care (01) ==
LOC: JER 12:01 → JERBED 16:53 → J4W 20:41
PROVIDERS: ADMIT Internal Medicine; ATTEND Internal Medicine
PROC: 3E033NZ Introduction of Analgesics, Hypnotics, Sedatives into Peripheral Vein, Percutaneous Approach (ICD-10-PCS; principal; 2023-06-29)
PROC: 3E033NZ Introduction of Analgesics, Hypnotics, Sedatives into Peripheral Vein, Percutaneous Approach (ICD-10-PCS; 2023-06-29)
DX: R07.9 Chest pain, unspecified (principal); J45.909 Unspecified asthma, uncomplicated; R01.1 Cardiac murmur, unspecified; I10 Essential (primary) hypertension; D35.2 Benign neoplasm of pituitary gland; R73.03 Prediabetes; R42 Dizziness and giddiness; K21.9 Gastro-esophageal reflux disease without esophagitis; K29.50 Unspecified chronic gastritis without bleeding
CPT/HCPCS: 0241U-QW; 36415; 71045-TC-FY; 78452-TC; 80048; 80053; 80061; 83036; 83735; 83880; 84100; 84484; 85025; 85027; 85379; 85610; 85730; 86850; 86900; 86901; 93005; 93010; 93017; 93306-TC; 96365; 96375; 99285-25; A9502; G0378; J0131